=== PATIENT | male | born 1955 | race Caucasian/White ===

== ENCOUNTER 2017-01-10 18:00 | Emergency (ER) | payer OTHER ==
[2017-01-10 18:12] VITALS: BP 152/70; BMI 34.8
--- NOTE | 2017-01-10 18:42 | DR.GENAD ---
HPI - PCP Primary Care Physician: NFD - Complaint/Symptoms Chief Complaint:: PT STATES" I CAN NOT PEE IT FEELS LIKE ITS RIGHT THERE IN MY PENIS BUT IT ONLY COMES OUT IN DROPS" - Source History Provided: Patient - Mode of Arrival Mode of Arrival: Ambulatory - Timing Onset of Chief Complaint: 01/07/17 PMH - PMH Past Medical History: Yes Past Medical History: Angina, Anxiety, Diabetes, Hypertension Past Medical History Comment: PROSTATE CANCER 2 YRS Past Surgical History: Yes Surgical History: Joint Replacement Past Surgical History Comment: BACK SURGERY, LT SHOULDER, RT ELBOW - Family History History of Family Medical Conditions: No - Social History Type of Tobacco Use: Cigarettes Does any household member use tobacco: Yes Alcohol Use: None Do you use any recreational Drugs:: Yes (THC) Lives With: Family - infectious screening In the last 2 months have you had wt loss of >10#?: NO Have you had fever, night sweats or hemotysis?: No Have you traveled outside the country in the last 6 months?: No Isolation: Standard ROS - Review of Systems Eyes: No Symptoms Reported ENTM: No Symptoms Reported Respiratoy: No Symptoms Reported Cardiovascular: No Symptoms Reported Gastrointestinal/Abdominal: No Symptoms Reported Genitourinary: Dysuria Neurological: No Symptoms Reported Musculoskeletal: No Symptoms Reported Integumentary: No Symptoms Reported Hematologic/Lymphatic: No Symptoms Reported Endocrine: No Symptoms Reported Psychiatric: No Symptoms Reported All Other Systems: Reviewed and Negative PE - Vital Signs Vitals: Temperature 98.2 F Pulse Rate 76 Respiratory Rate 18 Blood Pressure 152/70 O2 Sat by Pulse Oximetry 99 - General Limitations: No Limitations General Appearance: Alert, In No Apparent Distress - Head Head Exam: Normal Inspection, Atraumatic - Eyes Eye exam: Normal Appearance, PERRL, EOMI - ENT ENT Exam: Normal Exam External Ear Exam: Normal External Inspection TM/Canal Exam: Bilateral Normal Nose Exam: Normal Nose Exam Mouth Exam: Normal Inspection Throat Exam: Normal Inspection - Neck Neck Exam: Normal Inspection, Full ROM - Chest Chest Inspection: Normal Inspection - Respiratory Respiratory Exam: Normal Lung Sounds Bilat Respiratory Exam: Bilateral Clear to Auscultation - Cardiovascular Cardiovascular Exam: Regular Rate, Normal Rhythm - Abdominal Exam Abdominal Exam: Normal Inspection, Normal Bowel Sounds, Soft, Tenderness ( suprapubic) ROR - Labs Reviewed Laboratory Results Reviewed?: Yes (5+Bld, Leukocyte Est 3+, wbc 50-55) Laboratory: Specimen Type Catherized urine 01/10/17 19:09 Urine Color Dark yellow (YELLOW) 01/10/17 19:09 Urine Appearance Cloudy (CLEAR) 01/10/17 19:09 Urine pH 5.0 (5.0 - 8.0) 01/10/17 19:09 Ur Specific [place] 1.025 (1.000-1.030) 01/10/17 19:09 Urine Protein 3+ (NEGATIVE) 01/10/17 19:09 Urine Glucose (UA) Negative (NEGATIVE) 01/10/17 19:09 Urine Ketones 2+ (NEGATIVE) 01/10/17 19:09 Urine Occult Blood 5+ (NEGATIVE) 01/10/17 19:09 Urine Nitrite Negative (NEGATIVE) 01/10/17 19:09 Urine Bilirubin 1+ (NEGATIVE) 01/10/17 19:09 Urine Urobilinogen 2+ (NORMAL) 01/10/17 19:09 Ur Leukocyte Esterase 3+ (NEGATIVE) 01/10/17 19:09 Urine RBC 75-80 /HPF (NEGATIVE) 01/10/17 19:09 Urine WBC 50-55 /HPF (NEGATIVE) 01/10/17 19:09 Ur Squamous Epith Cells Negative /HPF (NEGATIVE) 01/10/17 19:09 Amorphous Sediment 1+ /HPF (NEGATIVE) 01/10/17 19:09 Urine Bacteria 2+ /HPF (NEGATIVE) 01/10/17 19:09 Hyaline Casts Rare /LPF (NEGATIVE) 01/10/17 19:09 Ur Culture Indicated? Yes/culture set up 01/10/17 19:09 - Diagnosis Discharge Problem: UTI (urinary tract infection) Qualifiers: Urinary tract infection type: acute cystitis Hematuria presence: with hematuria Qualified Code(s): N30.01 - Acute cystitis with hematuria - Discharge Plan Condition: Stable - Follow ups/Referrals Follow ups/Referrals: NFD,None [Primary Care Provider] - 3 days - Instructions
[2017-01-10 19:21] LABS: BILIRUBIN,URINE 1+ (NEGATIVE); BLOOD/HEMOGLOBIN,URINE 5+ (NEGATIVE); GLUCOSE, URINE NEGATIVE (NEGATIVE); KETONES,URINE 2+ (NEGATIVE); LEUKOCYTE ESTERASE ,URINE 3+ (NEGATIVE); NITRITES,URINE NEGATIVE (NEGATIVE); PROTEIN,URINE 3+ (NEGATIVE); UROBILINOGEN,URINE 2+ (NORMAL)
[2017-01-10 19:28] LABS: AMORPHOUS SEDIMENT,UR 1+ /HPF (NEGATIVE); APPEARANCE,URINE CLOUDY (CLEAR); BACTERIA,URINE 2+ /HPF (NEGATIVE); COLOR,URINE DARK YELLOW (YELLOW); HYALINE CASTS, URINE RARE /LPF (NEGATIVE); RBC,URINE 75-80 /HPF (NEGATIVE); SQUAMOUS EPITHELIAL CELL,UR NEGATIVE /HPF (NEGATIVE)
[2017-01-10] MEDS ORDERED: ROCEPHIN VIAL 1 GM IM ONE (21:08)
[2017-01-10] MEDS ORDERED: ROCEPHIN VIAL 1 GM ONE (21:09)
== END 2017-01-10 21:35 | disposition home or self-care (01) ==
LOC: ER 18:18
DX: N30.01 Acute cystitis with hematuria (principal); B96.1 Klebsiella pneumoniae [K. pneumoniae] as the cause of diseases classified elsewhere
CPT/HCPCS: 51702; 81001; 87086; 87088; 87186; 96372; 99283; J0696